=== PATIENT | female | born 1965 | race Caucasian/White ===

== ENCOUNTER 2017-05-26 17:07 | Emergency (ER) | payer OTHER ==
[~2017-05-26] VITALS: Ht 167.6 cm; Wt 103.4 kg
[2017-05-26 17:11] VITALS: Ht 167.6 cm; Wt 103.4 kg
[2017-05-26 17:56] VITALS: BP 139/98
== END 2017-05-26 17:56 | disposition home or self-care (01) ==
LOC: ED 17:07
DX: K08.89 Other specified disorders of teeth and supporting structures (principal); K02.9 Dental caries, unspecified; I10 Essential (primary) hypertension; J44.9 Chronic obstructive pulmonary disease, unspecified; K21.9 Gastro-esophageal reflux disease without esophagitis

== ENCOUNTER 2017-09-14 18:36 | Emergency (ER) | payer OTHER, MEDICAID ==
[~2017-09-14] VITALS: Ht 167.6 cm; Wt 108.0 kg
[2017-09-14 18:38] VITALS: Ht 167.6 cm; Wt 108.0 kg
[2017-09-14 19:06] VITALS: BP 151/84
== END 2017-09-14 19:06 | disposition home or self-care (01) ==
LOC: ED 18:36
DX: K02.9 Dental caries, unspecified (principal); Z88.0 Allergy status to penicillin; Z88.6 Allergy status to analgesic agent

== ENCOUNTER 2018-01-12 12:16 | Emergency (ER) | payer OTHER ==
[~2018-01-12] VITALS: Ht 167.6 cm; Wt 110.2 kg
[2018-01-12 12:35] VITALS: Ht 167.6 cm; Wt 110.2 kg
[2018-01-12 14:44] VITALS: BP 138/64
== END 2018-01-12 14:44 | disposition home or self-care (01) ==
LOC: ED 12:16
DX: S39.012A Strain of muscle, fascia and tendon of lower back, initial encounter (principal); F41.9 Anxiety disorder, unspecified; K21.9 Gastro-esophageal reflux disease without esophagitis; Z88.0 Allergy status to penicillin; Z88.8 Allergy status to other drugs, medicaments and biological substances; W18.39XA Other fall on same level, initial encounter; Y93.9 Activity, unspecified; Y92.89 Other specified places as the place of occurrence of the external cause; Y99.8 Other external cause status

== ENCOUNTER 2018-07-10 20:17 | Emergency (ER) | payer OTHER ==
[2018-07-10 20:24] VITALS: Ht 167.6 cm
[2018-07-10 21:32] VITALS: BP 138/76
== END 2018-07-10 21:32 | disposition home or self-care (01) ==
LOC: ED 20:17
DX: K08.89 Other specified disorders of teeth and supporting structures (principal); J44.9 Chronic obstructive pulmonary disease, unspecified; F41.9 Anxiety disorder, unspecified; F17.210 Nicotine dependence, cigarettes, uncomplicated; Z88.0 Allergy status to penicillin; Z88.5 Allergy status to narcotic agent; Z88.6 Allergy status to analgesic agent; Z90.49 Acquired absence of other specified parts of digestive tract; Z98.890 Other specified postprocedural states; Z71.6 Tobacco abuse counseling
CPT/HCPCS: 99406